=== PATIENT | female | born 1980 | race Caucasian/White ===

== ENCOUNTER 2020-06-03 12:20 | Emergency (ER) | payer SELFPAY ==
[~2020-06-03] VITALS: Ht 167.6 cm; Wt 73.5 kg
[2020-06-03 12:39] VITALS: Ht 167.6 cm; Wt 73.5 kg
[2020-06-03] MEDS ORDERED: MOT600 PO (14:54)
[2020-06-03] MEDS ORDERED: ACETAMINOPHEN-H1 TA1 PO (14:54)
[2020-06-03 15:07] VITALS: BP 106/62
== END 2020-06-03 15:01 | disposition home or self-care (01) ==
LOC: ED 12:20
DX: M94.0 Chondrocostal junction syndrome [Tietze] (principal); F41.9 Anxiety disorder, unspecified; Z98.890 Other specified postprocedural states; Z90.49 Acquired absence of other specified parts of digestive tract